=== PATIENT | male | born 1985 | race Caucasian/White ===

== ENCOUNTER 2023-01-07 08:58 | Day surgery (SDC) | payer BC ==
[~2023-01-07] VITALS: Ht 190.5 cm; Wt 119.1 kg
[~2023-01-07 08:58] MED LIST: META0.52 PO; ceFAZolin SOD 2 GM in IV 1 EA IV ONE
[2023-01-07] MEDS ORDERED: LR 1,000 ML IV SCH (09:45)
[2023-01-07] MEDS ORDERED: MIDAZOLAM INJ 2MG/2ML VIAL As Ordered ONE (09:51)
[2023-01-07] MEDS ORDERED: fentaNYL 100 MCG/2 ML INJECTION As Ordered ONE (09:52)
[2023-01-07] MEDS ORDERED: IPRATROPIUM 0.5MG/ALBUTEROL 2.5MG INH SOL UD 3ML (DUONEB) NEB ONE (10:20)
[2023-01-07] MEDS ORDERED: MORPHINE 2 MG/ML 1ML VIAL IV PRN (11:45)
[2023-01-07] MEDS ORDERED: fentaNYL 100 MCG/2 ML INJECTION IV PRN (11:45)
[2023-01-07] MEDS ORDERED: ONDANSETRON 4MG 2ML VIAL IV PRN (11:45)
[2023-01-07] MEDS ORDERED: oxyCODONE 5MG TAB PO PRN (11:45)
[2023-01-07] MEDS ORDERED: NS 1,000 ML IV SCH (12:35)
[2023-01-07 12:45] VITALS: BP 126/93; TEMP 97.5; O2SAT 100
[2023-01-07] MEDS ORDERED: KETOROLAC 30 MG/ML 1ML VIAL IV SCH (13:00)
== END 2023-01-07 12:47 | disposition home or self-care (01) ==
LOC: M SDC 08:58
PROVIDERS: ATTEND Surgery
DX: D18.1 Lymphangioma, any site (principal); K21.9 Gastro-esophageal reflux disease without esophagitis; J45.909 Unspecified asthma, uncomplicated; Z86.14 Personal history of Methicillin resistant Staphylococcus aureus infection; L40.9 Psoriasis, unspecified; R06.83 Snoring; F17.210 Nicotine dependence, cigarettes, uncomplicated; Z88.4 Allergy status to anesthetic agent
CPT/HCPCS: 38550; 88305; J0665; J0690; J2250; J3010

== ENCOUNTER → 2023-02-03 | Outpatient (CLI) | payer BC ==
[~2023-02-03] MED LIST changes: +DOCU100T8 PO; +LIDOCAINE 1% MDV 20ML VIAL As Ordered ONE; -ceFAZolin SOD 2 GM in IV 1 EA IV ONE
[2023-02-03 10:25] VITALS: BP 157/89; TEMP 97.5; O2SAT 99
== END ==
LOC: M IRPRO 10:19
PROVIDERS: ATTEND Surgery
DX: R22.2 Localized swelling, mass and lump, trunk (principal)